=== PATIENT | male | born 1995 | race Caucasian/White ===

== ENCOUNTER 2017-03-21 14:07 | Emergency (ER) | payer SELFPAY ==
[~2017-03-21] VITALS: Ht 165.1 cm; Wt 63.5 kg
[2017-03-21 14:13] VITALS: BP 122/86
--- NOTE | 2017-03-21 14:17 | NUR ---
Patient ambulated to bed 03.
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
[2017-03-21] MEDS ORDERED: ETHYL CHLORIDE 105 ML SPR TP ONE (14:45)
[2017-03-21 15:37] VITALS: BP 117/75
[2017-03-21] MEDS ORDERED: BACITRACIN OINT 500 UNITS/GM PKT TP ONE (15:39)
== END 2017-03-21 15:37 | disposition home or self-care (01) ==
LOC: MED 14:07
DX: L03.012 Cellulitis of left finger (principal); Z71.6 Tobacco abuse counseling
CPT/HCPCS: 90471; 90715; 99283

== ENCOUNTER 2018-02-13 11:58 | Emergency (ER) | payer SELFPAY ==
[~2018-02-13] VITALS: Ht 170.2 cm; Wt 72.6 kg
[2018-02-13 12:02] VITALS: BP 118/76
--- NOTE | 2018-02-13 12:17 | NUR ---
DR. ELLIS AT BEDSIDE EVALUATING PT.
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
--- NOTE | 2018-02-13 12:29 | NUR ---
PT UNDER SUPERVISION OF [employer].
--- NOTE | 2018-02-13 12:34 | NUR ---
WOUND CARE PROVIDED. PT SLEEPING IN BED COMFORTABLY.
--- NOTE | 2018-02-13 12:49 | NUR ---
ADMINISTERED MEDICINE ORDERED. TOLERATING WELL.
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
[2018-02-13 13:07] VITALS: BP 118/76
== END 2018-02-13 13:04 ==
LOC: MED 11:58
DX: S80.812A Abrasion, left lower leg, initial encounter (principal); S80.811A Abrasion, right lower leg, initial encounter; Z02.89 Encounter for other administrative examinations; W17.89XA Other fall from one level to another, initial encounter; Y93.02 Activity, running; Y92.89 Other specified places as the place of occurrence of the external cause; Y99.8 Other external cause status
CPT/HCPCS: 90471; 90715; 99283

== ENCOUNTER 2019-02-11 07:23 | Emergency (ER) | payer OTHER ==
[~2019-02-11] VITALS: Ht 165.1 cm; Wt 68.0 kg
--- NOTE | 2019-02-11 07:23 | NUR ---
Patient [facility] accompanied by [facility] SERRANO, transferred to bed 10. RN evaluating patient at bedside.
[2019-02-11 07:30] VITALS: BP 153/85
--- NOTE | 2019-02-11 07:30 | NUR ---
Dr. Robles is evaluating the patient at bedside.
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
--- NOTE | 2019-02-11 07:48 | NUR ---
technician anatomic pathology at bedside.
--- NOTE | 2019-02-11 07:48 | NUR ---
[place] [employer] at bedside.
--- NOTE | 2019-02-11 08:18 | NUR ---
PT RESTING, ABLE TO VISUALIZE RISE AND FALL OF CHEST. WILL CONTINUE TO MONITOR.
--- NOTE | 2019-02-11 08:27 | NUR ---
TRINIDAD ANDERSON AT BEDSIDE, OFFICER DESIST #[id number].
[2019-02-11] MEDS ORDERED: LIDOCAINE/EPI 1% 1:100000 20 ML VIAL INJ ONE ×2 (08:39→08:40)
--- NOTE | 2019-02-11 08:45 | NUR ---
UZMA JAIN AT BEDSIDE.
--- NOTE | 2019-02-11 09:22 | NUR ---
EMT PERFORMING WOUND DRESSING AT BEDSIDE.
--- NOTE | 2019-02-11 09:27 | NUR ---
APPLIED NON-ADHERENT DRESSING TO RIGHT HAND WITHOUT ANY ISSUES
[2019-02-11 09:35] VITALS: BP 131/77
--- NOTE | 2019-02-11 09:35 | NUR ---
Patient discharged with v/s stable. Written and verbal after care instructions given and explained. Patient verbalized understanding. Ambulatory with steady gait. All questions addressed prior to discharge. Advised to follow up with PMD.
== END 2019-02-11 09:35 | disposition home or self-care (01) ==
LOC: MED 07:23
DX: S61.411A Laceration without foreign body of right hand, initial encounter (principal); W26.0XXA Contact with knife, initial encounter; Y93.89 Activity, other specified; Y92.89 Other specified places as the place of occurrence of the external cause; Y99.8 Other external cause status
CPT/HCPCS: 12002; 73130; 90471; 90715; 99283; J2001; Q0092